=== PATIENT | male | born 1970 | race Caucasian/White ===

== ENCOUNTER 2016-07-07 12:31 | Emergency (ER) | payer OTHER ==
[2016-07-07 12:44] VITALS: O2SAT 96
--- NOTE | 2016-07-07 15:40 | EDPHY ---
H & P Chief Complaint Nursing Narrative: C/O BRBPR since Sat am- tried OTC with out relief Time Seen by Provider: 07/07/16 13:47 HPI/ROS: CHIEF COMPLAINT: hemorrhoids HISTORY OF PRESENT ILLNESS: 46-year-old male presents emergency department complaining of painful hemorrhoids x3 days that are worsening. Patient reports he has had hemorrhoids in the past and they have gone away with over-the- counter treatment. He has been using cream and suppositories with no relief. Patient reports bright red blood slow drainage and painful bowel movements. No fevers, no abdominal pain, no difficulties urinating. REVIEW OF SYSTEMS: A comprehensive 10 point review of systems is otherwise negative aside from elements mentioned in the history of present illness. Source: Patient Exam Limitations: No limitations - Medical/Surgical History Other PMH: denies - Social History Smoking Status: Never smoked - Physical Exam Exam: GEN: Awake, alert, oriented, no acute distress RESP: nl resp effort Abdomen, soft nontender MSK: Normal appearing : Patient two large external hemorrhoids, 1 appears thrombosed Constitutional: Initial Vital Signs Temperature (C) 36.6 C 07/07/16 12:42 Heart Rate 78 07/07/16 12:42 Respiratory Rate 18 07/07/16 12:42 Blood Pressure 115/62 07/07/16 12:42 O2 Sat (%) 96 07/07/16 12:42 O2 Delivery Mode Room Air Allergies/Adverse Reactions: No Known Allergies Allergy (Unverified 07/07/16 12:42) Home Medications: Medication Instructions Recorded Hydrocodone/APAP 5/325 [Lockhart 1 tab PO Q4H PRN #10 tab 07/07/16 5/325] Hydrocortisone Acetate [Proctosert 30 mg RC Q8HRS PRN #10 supp.rect 07/07/16 Hc] Medical Decision Making Procedures: Procedure: Thrombosed hemorrhoid excision Verbal consent was obtained from the patient. The thrombosed hemorrhoid was anesthetized using 1% lidocaine with epinephrine. Incision was made on the thrombosed hemorrhoid with an 11 blade scalpel, clot was removed. The procedure was performed by myself. Tetanus and antibiotic status were addressed. Departure - Departure Disposition: Home, Routine, Self-Care Clinical Impression: Internal thrombosed hemorrhoids Condition: Good Instructions: Hemorrhoids (ED), Thrombosed Hemorrhoid (ED) Additional Instructions: Take 100 mg of Colace 3 times a day. Take MiraLax 17 g daily. Drink plenty of water, eat plenty of fiber, take 600 mg of ibuprofen every 8 hours with food for 3-5 days, take Lockhart 1-2 every 4-6 hours for severe pain. Warm Sitz baths 3 times a day for 5-10 minutes. Use the prescribed suppositories or preparation H suppositories as directed. Follow-up with the surgeon at 1st available appointment, call to schedule this today. Return to the emergency department for worsening symptoms, new symptoms or concerns, fevers. Referrals: Terrence Griffin MD [Medical Doctor] - As per Instructions (General surgeon) Prescriptions: Hydrocortisone Acetate [Proctosert Hc] 30 mg RC Q8HRS PRN #10 supp.rect PRN Reason: Pain, Moderate Hydrocodone/APAP 5/325 [Lockhart 5/325] 1 tab PO Q4H PRN #10 tab PRN Reason: Pain, Moderate
[2016-07-07 15:48] VITALS: BP 122/65; PULSE 81; RESP 20; TEMP 98.2
== END 2016-07-07 15:55 | disposition home or self-care (01) ==
LOC: CED 12:31
PROC: 069Y0ZZ Drainage of Lower Vein, Open Approach (ICD-10-PCS; principal; 2016-07-07)
DX: K64.8 Other hemorrhoids (principal)
CPT/HCPCS: G0463-PO